=== PATIENT | female | born 1995 | race African-American/Black ===

== ENCOUNTER 2018-04-07 22:33 | Emergency (ER) | payer OTHER ==
[2018-04-07 23:08] VITALS: TEMP 98.2; BMI 29.9
[2018-04-08] MEDS ORDERED: RANITIDINE HCL 150 MG TABLET (FP) PO ONE (01:05)
[2018-04-08] MEDS ORDERED: MAG HYDROX/AL HYDROX/SIMETH 30 ML UNIT-DOSE CUP PO ONE (01:05)
--- NOTE | 2018-04-08 01:17 | PDOC ---
*Physical Exam - Vital Signs Last Vital Signs Temp Pulse Resp BP Pulse Ox 98.2 F 74 20 126/92 100 04/07/18 23:05 04/07/18 23:05 04/07/18 23:05 04/07/18 23:05 04/07/18 23:05 Medical Decision Making - Medical Decision Making 04/08/18 01:16 agree with care from CARMEN Howard *DC/Admit/Observation/Transfer Diagnosis at time of Disposition: Gastritis, Cystitis - Discharge Dispostion Disposition: HOME Condition at time of disposition: Stable - Prescriptions Prescriptions: Mag Hydrox/Al Hydrox/Simeth [Mylanta Suspension -] 30 ml PO Q6H PRN #1 bottle PRN Reason: Gas Nitrofurantoin Monohyd/M-Cryst [Macrobid -] 100 mg PO BID #14 capsule - Referrals - Patient Instructions Printed Discharge Instructions: Gastritis, [place] Diet Additional Instructions: drink plenty of fluids start a bland diet. take Maalox and macrobid as prescribed. follow up with your primary doctor as soon as possible - Post Discharge Activity Forms/Work/School Notes: Back to Work
[2018-04-08] MEDS ORDERED: RANITIDINE HCL 150 MG TABLET (FP) ONE (02:00)
[2018-04-08] MEDS ORDERED: MAG HYDROX/AL HYDROX/SIMETH 30 ML UNIT-DOSE CUP ONE (02:00)
--- NOTE | 2018-04-08 02:07 | PDOC ---
History of Present Illness - General Chief Complaint: Cold Symptoms Stated Complaint: STOMACH PAIN Time Seen by Provider: 04/08/18 00:57 History Source: Patient - History of Present Illness Initial Comments: 04/08/18 02:03 22-year-old female Complaining of generalized abdominal pain worsening over the epigastric area intermittent since drinking a large amount of alcohol 4 days ago. Patient reports that over the last 4 days the symptoms have been getting better, however needed medical evaluation to confirm. Denies past medical history Patient reports that she is a social drinker. Currently symptoms are mild. Past History - Past Medical History Allergies/Adverse Reactions: Allergies Allergy/AdvReac Type Severity Reaction Status Date / Time No Known Allergies Allergy Verified 04/07/18 23:05 Home Medications: Ambulatory Orders Mag Hydrox/Al Hydrox/Simeth [Mylanta Suspension -] 30 ml PO Q6H PRN #1 bottle Nitrofurantoin Monohyd/M-Cryst [Macrobid -] 100 mg PO BID #14 capsule 04/08/18 Anemia: No CVA: No COPD: No DVT: No Dementia: No - Suicide/Smoking/Psychosocial Hx Smoking History: Never smoked Information on smoking cessation initiated: No Hx Alcohol Use: No Drug/Substance Use Hx: No Substance Use Type: Alcohol Review of Systems - Review of Systems Able to Perform ROS?: Yes Is the patient limited Dutch proficient: No Constitutional: No: Symptoms Reported, See HPI, Chills, Diaphoresis, Fever, Loss of Appetite, Malaise, Night Sweats, Weakness, Weight Stable, Unintentional Wgt. Loss, Unexplained wgt Loss, Other HEENTM: No: Symptoms Reported, See HPI, Eye Pain, Blurred Vision, Tearing, Recent change in vision, Double Vision, Cataracts, Ear Pain, Ocular Prothesis, Ear Discharge, Nose Pain, Nose Congestion, Tinnitus, Nose Bleeding, Hearing Loss , Throat Pain, Throat Swelling, Mouth Pain, Dental Problems, Difficulty Swallowing, Mouth Swelling, Other ABD/GI: Yes: Abdominal cramping. No: Symptoms Reported, See HPI, Abdominal Distended, Abd. Pain w/ defecation, Blood Streaked Bowels, Constipated, Diarrhea , Difficulty Swallowing, Nausea, Poor Appetite, Poor Fluid Intake, Rectal Bleeding, Vomiting, Indigestion, Tarry Stools, Other *Physical Exam - Vital Signs Last Vital Signs Temp Pulse Resp BP Pulse Ox 98.2 F 74 20 126/92 100 04/07/18 23:05 04/07/18 23:05 04/07/18 23:05 04/07/18 23:05 04/07/18 23:05 - Physical Exam General Appearance: Yes: Appropriately Dressed Respiratory/Chest: positive: Lungs Clear, Normal Breath Sounds Gastrointestinal/Abdominal: positive: Normal Bowel Sounds, Soft. negative: Tender Extremity: positive: Normal Capillary Refill, Normal Inspection, Normal Range of Motion Integumentary: positive: Normal Color, Dry, Warm Neurologic: positive: Fully Oriented, Alert, Normal Mood/Affect Medical Decision Making - Medical Decision Making 04/08/18 02:07 gastritis : UA Maalox Zantac *DC/Admit/Observation/Transfer Diagnosis at time of Disposition: Cystitis Gastritis Qualifiers: Gastritis type: other gastritis Chronicity: acute Gastritis bleeding: without bleeding Qualified Code(s): K29.00 - Acute gastritis without bleeding - Discharge Dispostion Disposition: HOME - Prescriptions Prescriptions: Mag Hydrox/Al Hydrox/Simeth [Mylanta Suspension -] 30 ml PO Q6H PRN #1 bottle PRN Reason: Gas Nitrofurantoin Monohyd/M-Cryst [Macrobid -] 100 mg PO BID #14 capsule - Referrals - Patient Instructions Printed Discharge Instructions: Gastritis, [place] Diet Additional Instructions: drink plenty of fluids start a bland diet. take Maalox and macrobid as prescribed. follow up with your primary doctor as soon as possible - Post Discharge Activity Forms/Work/School Notes: Back to Work
[2018-04-08 02:14] LABS: URINE APPEARANCE CLOUDY; URINE BILIRUBIN NEGATIVE (<2.0 mg/dL); URINE COLOR LTYELLOW; URINE GLUCOSE (UA) NEGATIVE (NEGATIVE); URINE KETONE TRACE (NEGATIVE); URINE NITRITE NEGATIVE (NEGATIVE); URINE PROTEIN NEGATIVE (NEGATIVE); URINE UROBILINOGEN NEGATIVE mg/dL (0.2-1.0)
[2018-04-08 02:25] LABS: URINE LEUK ESTERASE 3+ (NEGATIVE)
[2018-04-08 02:27] LABS: EPI CELLS MODERATE /HPF (FEW); URINE BACTERIA RARE /hpf (NONE SEEN); URINE HYALINE CAST 1 /lpf; URINE MUCUS FEW
[2018-04-08 02:28] LABS: HCG,QUALITATIVE URINE NEGATIVE
[2018-04-08 02:46] VITALS: BP 126/71; PULSE 69
== END 2018-04-08 02:40 | disposition home or self-care (01) ==
LOC: JER 22:33
DX: K29.00 Acute gastritis without bleeding (principal); N30.90 Cystitis, unspecified without hematuria
CPT/HCPCS: 81003; 81015; 84703; 99283-25